=== PATIENT | female | born 1970 | race Caucasian/White ===

== ENCOUNTER 2023-03-28 10:38 | Emergency (ER) | payer SELFPAY ==
[2023-03-28 10:40] VITALS: BP 106/56; PULSE 74; RESP 18; TEMP 36.3; O2SAT 100
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
[2023-03-28 11:19] VITALS: BP 110/70; PULSE 87; RESP 18; O2SAT 99
== END 2023-03-28 11:21 | disposition home or self-care (01) ==
PROVIDERS: Emergency Provider Emergency Medicine
DX: G57.62 Lesion of plantar nerve, left lower limb (principal)
CPT/HCPCS: 99283

== ENCOUNTER 2023-06-04 00:30 | Emergency (ER) | payer BC, SELFPAY ==
[2023-06-04 00:41] VITALS: BP 128/87; PULSE 86; RESP 18; TEMP 36.4; O2SAT 100
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
[2023-06-04] MEDS: KETOROLAC (*BKC) 60 MG/2 ML VIAL IM (00:51)
[2023-06-04] MEDS: ORPHENADRINE CITRATE 30 MG/ML 2 ML VIAL 60 MG IM (00:52)
== END 2023-06-04 01:10 | disposition home or self-care (01) ==
LOC: CHSED 00:57
PROVIDERS: Emergency Provider Emergency Medicine
DX: S29.012A Strain of muscle and tendon of back wall of thorax, initial encounter (principal); X58.XXXA Exposure to other specified factors, initial encounter
CPT/HCPCS: 96372; 99284; J1885; J2360

== ENCOUNTER 2024-03-08 04:13 | Emergency (ER) | payer SELFPAY ==
[2024-03-08 04:15] VITALS: BP 113/67; PULSE 63; RESP 16; TEMP 36.3; O2SAT 99
--- NOTE | 2024-03-08 04:29 | ED.URI ---
HPI - URI/Sore Throat General Chief Complaint: Upper Respiratory Infection Stated Complaint: URI Source: patient Mode of arrival: ambulatory Limitations: no limitations History of Present Illness HPI Narrative: Patient is a 53-year-old female with a cough and not feeling well for the past week. She went to the hospital last week and was diagnosed with viral bronchitis. No medications were given. She has sick contacts in the house with her family and they are on antibiotics and steroids. She have some left-sided lower chest discomfort when she coughs only. Mild shortness of breath. No chest pain per se. MD elicited complaint: fever ( She got 102 at home today), cough and nasal congestion Pertinent past history: other ( none) Onset (ago): week(s) (1) Consistency: constant Severity: moderate Pain scale (0-10): 2 Description of mucous: clear Able to tolerate fluids by mouth: Yes Exacerbating factors: deep breaths Relieving factors: nothing Context: sick contacts Associated symptoms: fever, chills, headache, nasal congestion and cough Treatments prior to arrival: acetaminophen, ibuprofen and cold medicine Related Data Allergies Allergy/AdvReac Type Severity Reaction Status Date / Time No Known Allergies Allergy Verified 03/08/24 04:25 Review of Systems Review of Systems: All systems reviewed & are unremarkable except as noted in HPI and below Constitutional: Constitutional: Reports no additional constitutional complaints Eyes: Eyes: Reports no additional eye complaints ENT: Reports system reviewed and no additional complaints, except as documented Cardiovascular: Cardiovascular: Reports no additional cardiovascular complaints Respiratory: Respiratory: Reports no additional respiratory complaints Gastrointestinal: Gastrointestinal: Reports no additional gastrointestinal complaints Genitourinary: Genitourinary: Reports no additional female genitourinary complaints Musculoskeletal: Musculoskeletal: Reports no additional musculoskeletal complaints Integumentary/Breasts: Skin/Breast: Reports system reviewed and no additional complaints, except as docu Neurologic: Reports system reviewed and no additional complaints, except as documented Psychiatric: Psychiatric: Reports no additional psychiatric complaints Endocrine: Endocrine: Reports no additional endocrine complaints Hematologic/Lymphatic: Hematologic/Lymphatic: Reports no additional hematologic/lymphatic complaints Allergic/Immunologic: Allergic/Immunologic: Reports no additional allergic/immunologic complaints PMFSH Past Medical History Medical History No active medical problems Surgical History Surgical History History of section Exam Const: General: healthy appearing Nutritional Appearance: well nourished Orientation/consciousness: patient oriented x3 Limitations: no limitations HENMT: Head: normal to inspection Ears: external ears normal Face/Nose/Sinus: Normal external nose present Eyes: Conjunctivae: conjunctivae normal Pupils: Equal, round and reactive pupils present EOM: EOMs intact bilaterally Neck: Neck: normal visual inspection Chest: Chest palpation & inspection: normal inspection of the chest Resp: Effort & Inspection: normal respiratory effort, not labored, no retractions, not tachypneic and no use of accessory muscles Auscultation: clear to auscultation bilaterally, no crackles, no rales, no rhonchi, no wheezes, breath sounds present and lung sounds not diminished Cardio: Rate: regular rate Rhythm: regular rhythm Heart sounds: no murmurs GI: Inspection: non-distended GI Palp: Yes Soft to palpation and No Tenderness to palpation present (GI) Auscultation: normal bowel sounds : General: Yes bladder normal to palpation Back/Spine/Pelvis: Back: no CVA tenderness Skin: General skin exam: normal color Rashes: no rashes Wounds: no wounds Neuro: General: patient oriented x3 Cranial nerves: Yes Nystagmus not present Speech: normal speech Extrem: General: normal to inspection Psych: Mental Status: mental status grossly normal Affect: normal affect Attitude: cooperative MDM - URI/Sore Throat MDM Narrative Medical decision making narrative: patient is a 53-year-old female with cough and congestion for the past week. Multiple sick contacts in the house. COVID testing negative. Lab Data Attestation: I reviewed the patient's lab results. Labs: Lab Results 03/08/24 Range/Units 04:15 Influenza A (RT-PCR) Pending Influenza B (RT-PCR) Pending RSV (RT-PCR) Pending SARS-CoV-2 RNA (RT-PCR) Pending Discharge Plan Discharge Clinical Impression: Bronchitis Patient Disposition: Home, Self-Care Condition: Stable Instructions: Antibiotic Form, Acute Bronchitis (ED) Prescriptions: New azithromycin 250 mg tablet See Rx Instructions .ROUTE .COMPLEX Qty: 6 0RF Rx Instructions: For 250 mg dose pack: take 500 mg today (day 1), then 250 mg for 4 days (days 2-5) methylprednisolone [Medrol (Yoel)] 4 mg tablets,dose pack See Rx Instructions .ROUTE .COMPLEX Qty: 21 0RF Rx Instructions: orally per package directions albuterol sulfate 90 mcg/actuation HFA aerosol inhaler 1 inh inhalation QID PRN (Reason: shortness of breath or wheezing) Qty: 6.7 0RF Follow-up/Referrals: John,Mike Galarza MD [Primary Care Provider] - Stand Alone Forms: Work/School Release IP Time of Disposition: 05:01
[2024-03-08 04:56] LABS: SARS-CoV-2 RNA PCR Negative (Negative)
[2024-03-08 04:57] LABS: Influenza A QL RT-PCR Negative (Negative); Influenza B QL RT-PCR Negative (Negative); RSV RNA, RT-PCR Negative (Negative)
[2024-03-08 05:08] VITALS: BP 115/72; PULSE 68; RESP 14; TEMP 36.6; O2SAT 99
== END 2024-03-08 05:10 | disposition home or self-care (01) ==
PROVIDERS: Emergency Provider Emergency Medicine; PCP Family Medicine
DX: J40 Bronchitis, not specified as acute or chronic (principal); Z20.822 Contact with and (suspected) exposure to COVID-19
CPT/HCPCS: 87637; 99283

== ENCOUNTER 2025-01-01 16:28 | Emergency (ER) | payer SELFPAY ==
--- OUTSIDE RECORDS SUMMARY | 2024-07-20 02:15 | XMS_ITS | Continuity of Care Document ---
Author Organization [facility] Address [address] [place] [address] Phone Care Team Providers Care Pugger Helper Name Role Phone Melissa Sosa Unavailable Unavailable Procedures Procedure Date Voided Encounter Advance Directives Directive Yes / No Effective Date File Name No Information Encounters Encounter Description Practice Location Reason(s) For Visit Diagnoses Date Provider Providers Copied on Encounter Kasumi-sou [facility] , [address], [place], [place], [id number], tel:[phone] [facility] No Information Ian Torres. [address], [place], [place], [id number]. tel:[phone] Referring Provider: Jessica Harvey, [address], [place], [address]. tel:[phone] Family History Family Member Type Diagnosis Age At Onset No Information Payers Payer name Insurance type Covered libertarian ID Authoriza tion(s) No Information Social History Type Description Quantity Date Captured Comments Sex Female Smoking Status No Information Chief Complaint And Reason For Visit No Information Reason For Referral Reason For Referral No Information History Of Present Illness Encounter Date Complaint History Of Prese nt Illness No Information Functional Status Date Functional Assessmen t No Information Instructions Date Instruction Additional Infor mation No Information Assessments Type Assessment Date No Information Patient Care Teams Name Effective Dates (start - stop) Status Members No Information
[2025-01-01 16:28] VITALS: BP 116/74; PULSE 95; RESP 17; TEMP 36.6; O2SAT 99
--- OUTSIDE RECORDS SUMMARY | 2025-01-01 16:30 | XMS_ITS | Clinical Summary ---
Author Organization [facility] Address [address] [place] [address] Phone Care Team Providers Care Podiatrist Assistant Name Role Phone Mike Lopez MD Primary Care Provider Allergies Active Allergy Reactions Criticality Noted Date Comments Oxycodone-Acetaminophen Nausea 01/15/2017 Medications azithromycin (ZITHROMAX Z-CAROLE) 250 MG Tablet 2 tab(s) daily for 1 day, then 1 tab(s) daily for days 2-5. 6 Tab 7 Active predniSONE (DELTASONE) 20 MG Tablet Use as directed. 15 Tab 9 Active naproxen (NAPROSYN) 500 MG Tablet Take 1 Tablet by mouth 2 times daily (with meals). 30 Tablet 2 Active albuterol 108 (90 Base) MCG/ACT Aerosol Solution take 2 Puffs by inhalation every 6 hours as needed for Cough. 6.7 g 2 Active HYDROcodone-acet aminophen ([place]) 5-325 MG TabletIndication s:Low back pain Take 1 Tablet by mouth every 8 hours as needed for Moderate or more severe pain. 12 Tablet 3 Active ondansetron (ZOFRAN-ODT) 4 MG TABLET DISPERSIBLE Take 1 Tablet by mouth every 8 hours as needed for Nausea - 1st line. 10 Tablet 3 Active Active Problems No known active problems Social History Tobacco Use Types Packs/Day Years Used Date Smoking Tobacco: Never Smokeless Tobacco: Never Alcohol Use Standard Drinks/Week Comments No 0 (1 standard drink = 0.6 oz pur e alcohol) Comments No Sex and Gender Information Value Date Recorded Sex Assigned at Not on file Legal Sex Female 11:03 PM CDT Gender Identity Not on file Sexual Orientation Not on file Last Filed Vital Signs Vital Sign Reading Time Taken Comments Blood Pressure 95/72 07/22/2022 10:38 PM CDT Pulse 82 07/22/2022 10:38 PM CDT Temperature 37.1 C (98.7 F) 07/22/2022 10:38 PM CDT Respiratory Rate 20 07/22/2022 10:38 PM CDT Oxygen Saturation 99% 07/22/2022 10:38 PM CDT Inhaled Oxygen Concentration - - Weight 50.8 kg (112 lb) 07/22/2022 10:38 PM CDT Height 154.9 cm (5' 1) 07/22/2022 10:38 PM CDT Body Mass Index 21.16 07/22/2022 10:38 PM CDT Plan of Treatment Health Maintenance Due Date Last Done Comments Hepatitis C Virus (HCV) Screening 1972 Hepatitis B Immunization (1 of 3 - 19+ 3-dose series) 1991 Pap Smear 1993 Cervical Cancer Screening (CCS) 2002 HPV/Cotest 2002 Cologuard 2017 Colonoscopy 2017 Colorectal Cancer Screening 2017 Immunochemical Fecal Occult Blood 2017 Pneumococcal Immunization (5 0+ years) (1 of 1 - PCV) 2022 Zoster Immunization (1 of 2) 2022 Influenza Immunization (#1) 2025 10/0 05/2019, 06/14/2018 SARS-COV-2 Immunization ( - season) 2025 Respiratory Syncytial Virus (RSV) Immunization (Adult) (1 - 1-dose 75+ series) 2047 DTaP/Tdap/Td Immunization Discontinued 07/18/2016 TdaP Immunization Completed 07/18/2016 Human Papillomavirus (HPV) Immunization Aged Out No longer eligible based on patient's age to complete this topic Meningococcal Immunization (ACWY) Aged Out No longer eligible based on patient's age to complete this topic Rotavirus Immunization Aged Out No lo nger eligible based on patient's age to complete this topic Insurance MEDICARE Care Teams Podiatrist Assistant Relationship Specialty Start Date End Date Mike Lopez MD [address] [place] [address] , [address] [address] PCP - General Family Medicine 03/03/21
--- OUTSIDE RECORDS SUMMARY | 2025-01-01 16:30 | XMS_ITS | Clinical Summary ---
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 hepatitis C screening test from Last 3 Months or Most Recently Relevant to Health Maintenance Results * CT Abdomen Pelvis W Contrast (12/11/2024 11:52 PM CDT) Anatomical Region Laterality Modality Body N/A Computed Tomogra phy 12/12/2024 12:1 1 AM CDT Narrative 12/12/2024 12:20 AM CDT EXAM DESCRIPTION: CT ABDOMEN PELVIS W CONTRAST REASON FOR STUDY: Abdominal pain, acute, nonlocalized C/o abdominal burning x 1 year that recently has gotten worse. Burning sensation radiates up into the throat. Patient states this feels similar to her prior episode of H pylori. Hx of , tubal ligation TECHNIQUE: CT scan of the abdomen and pelvis performed with intravenous and without oral contrast using helical scanning technique with dynamic intravenous contrast injection. Reconstructed coronal and sagittal MPR images reviewed. All images stored on PACS. Automated exposure control was used as a dose optimization technique for this examination. CONTRAST TYPE/DOSE: 75mL of IOVERSOL 350 MG IODINE/ML INTRAVENOUS SYRINGE injected via intravenous COMPARISON: None FINDINGS: LOWER CHEST: No significant pulmonary abnormalities. No effusion. 2.6 cm possible mass in the central aspect of the left breast is partially seen on this study. Correlation with mammographic results is recommended. LIVER: Normal size. No identified cystic or solid masses. GALLBLADDER: Unremarkable BILE DUCTS: No intrahepatic or extrahepatic ductal dilatation. SPLEEN: Normal size. No focal lesions. PANCREAS: No identified cystic or solid masses. No significant calcifications. No adjacent inflammation or peripancreatic fluid collections. Pancreatic duct not dilated. ADRENALS: Normal. KIDNEYS/URINARY TRACT: No identified significant cystic or solid masses. No visualized stones. No hydronephrosis or hydroureter. Symmetric enhancement. Urinary bladder is unremarkable. GI: No dilated bowel loops. No obvious wall thickening. Normal appendix. No significant diverticular disease. PERITONEUM: No ascites or free air. RETROPERITONEUM: No mass or adenopathy. REPRODUCTIVE: No significant abnormality. VASCULATURE: No abdominal aortic aneurysm. MUSCULOSKELETAL: No significant abnormality. OTHER: No other abnormality. IMPRESSION: 1. No acute finding. 2. 2.6 cm possible mass in the central aspect of the left breast is partially seen on this study. Correlation with mammographic results is recommended. THIS IS AN ELECTRONICALLY VERIFIED FINAL REPORT 12/12/2024 12:20 AM - Electronically signed by Ilan De Souza M.D. KH: ILDA Report ID: [id number] Reading Location: [place] [address] Procedure Note Ilan De Souza MD - 12/12/2024 EXAM DESCRIPTION: CT ABDOMEN PELVIS W CONTRAST REASON FOR STUDY: Abdominal pain, acute, nonlocalized C/o abdominal burning x 1 year that recently has gotten worse. Burning sensation radiates up into the throat. Patient states this feels similarto her prior episode of H pylori. Hx of , tubal ligation TECHNIQUE: CT scan of the abdomen and pelvis performed with intravenousand without oral contrast using helical scanning technique with dynamic intravenous contrast injection. Reconstructed coronal and sagittal MPRimages reviewed. All images stored on PACS. Automated exposure control was usedas a dose optimization technique for this examination. CONTRAST TYPE/DOSE: 75mL of IOVERSOL 350 MG IODINE/ML INTRAVENOUSSYRINGE injected via intravenous COMPARISON: None FINDINGS: LOWER CHEST: No significant pulmonary abnormalities. No effusion. 2.6cm possible mass in the central aspect of the left breast is partially seenon this study. Correlation with mammographic results is recommended. LIVER: Normal size. No identified cystic or solid masses. GALLBLADDER: Unremarkable BILE DUCTS: No intrahepatic or extrahepatic ductal dilatation. SPLEEN: Normal size. No focal lesions. PANCREAS: No identified cystic or solid masses. No significant calcifications. No adjacent inflammation or peripancreatic fluidcollections. Pancreatic duct not dilated. ADRENALS: Normal. KIDNEYS/URINARY TRACT: No identified significant cystic or solid masses.No visualized stones. No hydronephrosis or hydroureter. Symmetricenhancement. Urinary bladder is unremarkable. GI: No dilated bowel loops. No obvious wall thickening. Normalappendix. No significant diverticular disease. PERITONEUM: No ascites or free air. RETROPERITONEUM: No mass or adenopathy. REPRODUCTIVE: No significant abnormality. VASCULATURE: No abdominal aortic aneurysm. MUSCULOSKELETAL: No significant abnormality. OTHER: No other abnormality. IMPRESSION: 1. No acute finding. 2. 2.6 cm possible mass in the central aspect of the left breast is partially seen on this study. Correlation with mammographic results is recommended. THIS IS AN ELECTRONICALLY VERIFIED FINAL REPORT 12/12/2024 12:20 AM - Electronically signed by Ilan De Souza M.D. KH: ILDA Report ID: [id number] Reading Location: [place] [address] PROCEDURES Final R esult * eGFR (12/11/2024 9:57 PM CDT) eGFR >90 >=60 mL/min/1. 73 m2 Comment: Interpretive Data Reference Interval Normal >/= 90 mL/min/1.73m2 Mildly decreased* 60 - 89 mL/min/1.73m2 Mildly to moderately decreased 45 - 59 mL/min/1.73m2 Moderately to severely decreased 30 - 44 mL/min/1.73m2 Severely decreased 15 - 29 mL/min/1.73m2 Kidney Failure < 15 mL/min/1.73m2 *Relative to young adult level Estimated glomerular filtration rate is determined by the 2020 CKD-EPI equation recommended by the National Kidney [employer] (A Unifying Approach to GFR Estimation: Recommendations of the NKF-ASK Task Force on Reassessing the Inclusion of Race in Diagnosing Kidney Disease, JASN 2020). The CKD-EPI equation should not be used for patients with unstable renal function and has not been validated in children and those over 70. Current interpretive data was last reviewed 2021. Blood 12/11/2024 9:57 PM CDT 12/11/2024 10:07 PM CDT Ar[facility] CHRISTOPHER LAB BLOOD ORDERABLES Beverley jennifer Result [facility] ([place]) 1 [facility] Department [place] [address] * Differential, auto (12/11/2024 9:57 PM CDT) Neutrophil abs 3.47 1.50 - 6.50 K/cumm Imm gran abs 0.03 0.00 - 0.10 K/cumm [facility] ([place]) Lymphocyte abs 2.97 0.80 - 3.30 K/cumm [facility] ([place]) Monocyte abs 0.55 0.20 - 0.80 K/cumm [facility] ([place]) Eosinophil abs 0.16 0.00 - 0.50 K/cumm [facility] ([place]) Basophil abs 0.04 0.00 - 0.10 K/cumm [facility] ([place]) Neutrophil pct 48.1 % [facility] ([place]) Comment: Interpretive Data Percent cell count reference ranges are not reported, since discordance with absolute values may lead to misinterpretation of CBC data. Current Interpretive Data was last revised on 2017. Imm gran pct 0.4 % [facility] ([place]) Comment: Interpretive Data Percent cell count reference ranges are not reported, since discordance with absolute values may lead to misinterpretation of CBC data. Current Interpretive Data was last revised on 2017. Lymphocyte pct 41.1 % [facility] ([place]) Comment: Interpretive Data Percent cell count reference ranges are not reported, since discordance with absolute values may lead to misinterpretation of CBC data. Current Interpretive Data was last revised on 2017. Monocyte pct 7.6 % [facility] ([place]) Comment: Interpretive Data Percent cell count reference ranges are not reported, since discordance with absolute values may lead to misinterpretation of CBC data. Current Interpretive Data was last revised on 2017. Eosinophil pct 2.2 % [facility] ([place] Comment: Interpretive Data Percent cell count reference ranges are not reported, since discordance with absolute values may lead to misinterpretation of CBC data. Current Interpretive Data was last revised on 2017. Basophil pct 0.6 % [facility] ([place]) Comment: Interpretive Data Percent cell count reference ranges are not reported, since discordance with absolute values may lead to misinterpretation of CBC data. Current Interpretive Data was last revised on 2017. Blood 12/11/2024 9:57 PM CDT 12/11/2024 10:07 PM CDT us Ar[facility] CHRISTOP[facility] LAB BLOOD ORDERABLES Beverley rodriguez Result [facility] ([place]) 1 [facility] Department [place] [address] * (ABNORMAL) Urinalysis reflex to microscopic and culture Urine (12/11/2024 9:57 PM CDT) Color, ur Straw Yellow Clarity, ur Clear Clear [facility] ([place]) Specific gravity, ur 1.004 1.003 - 1.030 [facility] ([place]) pH, urine 6.5 [facility] ([place]) Comment: Interpretive Data U rine pH is affected by diet, medications, systemic acid-base disturbances, and renal tubular function. pH may affect urinary stone formation. For example, urine pH below 6.0 may help reduce the tendency for calcium phosphate stones and pH greater than 6.0 may reduce the tendency for uric acid stone formation. Source: [facility] [employer] Current Interpretive Data was last revised on 2017 Protein, ur ql Negative Negative [facility]) Glucose, ur ql Negative Negative [facility] ([place]) Ketones, ur Negative Negative [facility]) Bilirubin, ur Negative Negative [facility] ([place]) Blood, ur Negative Negative [facility] ([place]) Urobilinogen, ur <2.0 <2.0 mg/dL [facility] ([place]) Nitrite, ur Negative Negative [facility]) Leukocyte esterase, ur 2+(A) Negative [facility] ([place]) UA reflex comment Reflex to microscopic UA will be performed. [facility] ([place]) Urine 12/11/2024 9:57 PM CDT 12/11/2024 10:07 PM CDT Aranza CHRISTOPHER LAB MICROBIOLOGY - GENERA L ORDERABLES Final Result Performing Organization Address City/[facility]/ZIP Co de Phone Number [facility] ([place]) 1 [facility] [email or web address] [address] * CBC with auto differential (12/11/2024 9:57 PM CDT) WBC 7.22 3.80 - 9.90 K/cumm Hgb 12.5 11.9 - 15.5 g/dL [facility]) Hct 37.7 35.6 - 45.5 % [facility] ([place]) Plt 215 150 - 400 K/cumm [facility] ([place]) MPV 11.0 9.1 - 12.3 fL [facility]) RBC 4.20 3.90 - 5.20 M/cumm [facility]) MCV 89.8 81.3 - 96.4 fL [facility] ([place]) MCH 29.8 27.1 - 33.3 pg [facility] ([place]) MCHC 33.2 32.3 - 35.7 g/dL [facility] ([place]) RDW CV 12.9 11.1 - 14.9 % [facility] ([place]) RDW SD 42.3 35.7 - 48.1 fL [facility] ([place]) NRBC abs 0.00 0.00 - 0.01 K/cumm [facility] ([place]) Blood 12/11/2024 9:57 PM CDT 12/11/2024 10:07 PM CDT Ar[facility] CHRISTOP[facility] LAB BLOOD ORDERABLES Beverley l Result Performing Organization Address City/[facility]/ZIP Co de Phone Number [facility] ([place]) 1 [facility] [place] [address] * Urinalysis, microscopic only (12/11/2024 9:57 PM CDT) Pathologist [facility] WBC, ur 0-5 0 - 5 /HPF RBC, ur 0-2 0 - 2 /HPF [facility] ([place]) Epithelial cells, squamous, ur 1-5 0 - 5 /HPF [facility] ([place]) Culture Reflex Comment Reflex conditions for urine culture (WBC >10) not met. [facility] ([place]) Urine 12/11/2024 9:57 PM CDT 12/11/2024 10:07 PM CDT [facility] CHRISTOPHER LAB URINE ORDERABLES Beverley l Result [facility] ([place]) 1 [facility] [place] [address] * Lipase (12/11/2024 9:57 PM CDT) [facility] Lipase 75 10 - 99 Units/L [facility] ([place]) Blood 12/11/2024 9:57 PM CDT 12/11/2024 10:07 PM CDT Aranza CHRISTOPHER LAB BLOOD ORDERABLES Beverley l Result [facility] ([place]) 1 [facility] [place] [address] * Comprehensive metabolic panel (12/11/2024 9:57 PM CDT) Pathologist [facility] Sodium 138 135 - 145 mmol/L [facility] ([place]) Potassium, pl 3.7 3.3 - 4.9 mmol/L [facility] ([place]) Chloride 103 97 - 110 mmol/L [facility] ([place]) CO2 24 22 - 32 mmol/L [facility] ([place]) Anion gap 11 2 - 15 mmol/L [facility] ([place]) BUN 9 6 - 25 mg/dL [facility] ([place]) Creatinine 0.67 0.60 - 1.10 mg/dL [facility] ([place]) Glucose 110 70 - 199 mg/dL [facility] ([place]) Comment: Interpretive Data Fasting glucose >/= 126 mg/dl is diagnostic for diabetes. Fasting is defined as no caloric intake for at least 8 hours. Fasting glucose between 100 mg/dl to 125 mg/dl is diagnostic of prediabetes. In a patient with classic symptoms of hyperglycemia or hyperglycemic crisis, a random glucose >/= 200 mg/dl is diagnostic for diabetes. In the absence of unequivocal hyperglycemia, results should be confirmed by repeat testing. The classification and Diagnosis of Diabetes Diabetes Care 202; 46: S19-S40. Current interpretive data was last revised 2022. Calcium 9.2 8.5 - 10.3 mg/dL [facility] ([place]) Bilirubin, total 0.4 0.1 - 1.2 mg/dL [facility] ([place]) Protein, pl 7.1 6.5 - 8.5 g/dL [facility] ([place]) Albumin 4.3 3.5 - 5.0 g/dL [facility] ([place]) Alk phos 78 40 - 130 Units/L [facility] ([place]) ALT 17 7 - 45 Units/L [facility]) AST 23 10 - 45 Units/L [facility] ([place]) Blood 12/11/2024 9:57 PM CDT 12/11/2024 10:07 PM CDT Aranza CHRISTOPHER LAB BLOOD ORDERABLES Beverley rodriguez Result [facility] ([place]) 1 [facility] Department [place] [address] * XR Chest Pa Lateral 2 Vw (12/11/2024 9:28 PM CDT) Anatomical Region Laterality Modality Body, Chest N/A Computed Radiogr aphy 12/11/2024 9:35 PM CDT Narrative 12/11/2024 9:48 PM CDT EXAM DESCRIPTION: XR CHEST PA LATERAL 2 VIEWS REASON FOR STUDY: burning pain, inhalation Burning throughout chest No other chest complaints Non smoker TECHNIQUE: 2 radiographic view(s) of the chest. COMPARISON: 08/26/2023 FINDINGS: LUNGS: Mild bibasilar atelectasis. Mild biapical pleuroparenchymal scarring. No focal pulmonary parenchymal consolidation, mary pulmonary edema, pleural effusion, or pneumothorax. HEART/MEDIASTINUM: Cardiac silhouette normal in size. Mediastinal and hilar contours appear normal. LINES/TUBES: None. BONES: No acute osseous abnormality. IMPRESSION: No acute cardiopulmonary abnormality. THIS IS AN ELECTRONICALLY VERIFIED FINAL REPORT 12/11/2024 9:48 PM - Electronically signed by Kaylee Crews M.D. AT: AT Report ID: [id number] Reading Location: [id number] Procedure Note Kaylee Crews MD - 12/11/2024 EXAM DESCRIPTION: XR CHEST PA LATERAL 2 VIEWS REASON FOR STUDY: burning pain, inhalation Burning throughout chest No other chest complaints Non smoker TECHNIQUE: 2 radiographic view(s) of the chest. COMPARISON: 08/26/2023 FINDINGS: LUNGS: Mild bibasilar atelectasis. Mild biapical pleuroparenchymalscarring. No focal pulmonary parenchymal consolidation, mary pulmonary edema,pleural effusion, or pneumothorax. HEART/MEDIASTINUM: Cardiac silhouette normal in size. Mediastinal andhilar contours appear normal. LINES/TUBES: None. BONES: No acute osseous abnormality. IMPRESSION: No acute cardiopulmonary abnormality. THIS IS AN ELECTRONICALLY VERIFIED FINAL REPORT 12/11/2024 9:48 PM - Electronically signed by Kaylee Crews M.D. AT: AT Report ID: [id number] Reading Location: [id number] [facility] CHRISTOP[facility] IMG XR PROCEDURES Final R esult * Pap and High Risk HPV, reflex to Genotyping (05/25/2022 11:48 AM RAIL TRANSPORTATION TABELER) Pap test 05/25/2022 11:4 8 AM RAIL TRANSPORTATION TABELER 05/25/2022 11:48 AM RAIL TRANSPORTATION TABELER Narrative 05/27/2022 2:52 PM RAIL TRANSPORTATION TABELER [facility] Department of Pathology [address] [place], [place] [id number] Final Report with Addendum Note to Patients: This report may contain a detailed description of human tissue sent by a health care provider to the laboratory for pathologic evaluation. The content of this report is essential for diagnosis and may provide important critical findings. This information may be unfamiliar to patients to review without a medical professional present. It is advised that the patient review this report in the presence of a health care provider who can answer questions and explain the details. Patient Name: MARTI HARTMAN Address: [address] [place] [address] Gender: F : 1970 (Age: 52) Service: Location: N : [id number] Hospital #: [id number] Patient Type: SPECIMEN Taken: 05/25/2022 Received: 05/25/2022 Accessioned:: 05/26/2022 Reported: 05/27/2022 Physician(s): Villa Blackwell M.D. Diagnosis: Source of Specimen: SCREENING THIN PREP IMAGED PAP w/ HPV Specimen Adequacy: - Satisfactory for evaluation; endocervical/transformation zone component present General Category: - Negative for intraepithelial lesion or malignancy Interpretation/Results: - Numerous inflammatory cells present STEPHANIE Connor(ASC) Report Electronically Reviewed and Signed Out By TRAY [facility]) 05/27/2022 14:52:28Addenda: HPV Test Interpretation NEGATIVE for types 16, 18, 31, 33, 35, 39, 45, 51, 52, 56, 58, 59, 66 and 68. Test performed utilizing Gen-Probe Aptima assay. STEPHANIE Enamorado(ASC)Report Electronically Reviewed and Signed Out By STEPHANIE Enamorado([facility]) 05/27/2022 09:36:04 Specimen(s) Received: A: SCREENING THIN PREP IMAGED PAP w/ HPV Clinical History: Menstrual History: Perimenopausal The Pap test is a screening test used to aid in the detection of cervical cancer and its precursors. It should not be the sole means by which malignant and premalignant lesions are diagnosed. Both false negative and false positive results may occur. It also has poor sensitivity for the detection of endometrial lesions and should not be used to evaluate suspected endometrial abnormalities. For these reasons it is most important to obtain Pap tests at regular intervals. The performance characteristics of some immunohistochemical stains, fluorescence in-situ hybridization tests and immunophenotyping by flow cytometry cited in this report (if any) were determined by the Surgical Pathology Department at [facility] as part of an ongoing quality control manager program and in compliance with federally mandated regulations drawn from the Clinical Laboratory Improvement Act of 1988 (CLIA '88). Some of these tests rely on the use of analyte specific reagents and are subject to specific labeling requirements by the US Food and Drug Administration. Such diagnostic tests may only be performed in a facility that is certified by the Department of Health and Human Services as a high complexity laboratory under CLIA '88. The FDA has determined that such clearance or approval is not necessary. This test is used for clinical purposes. It should not be regarded as investigational or for research. Nevertheless, federal rules concerning the medical use of analyte specific reagents require that the following disclaimer be attached to the report: This test was developed and its performance characteristics determined by the Surgical Pathology Department [facility]. It has not been cleared or approved by the U. S. Food and Drug Administration. Mike Lopez MD LAB CYTOLOGY ORDERABLES Final Result * Hepatitis C antibody (10/04/2020 11:35 AM CDT) Hep C Ab Nonreactive Nonreactive [facility] ([place]) Comment: Interpretive Data Nonreactive: Antibodies to HCV not detected. Does NOT exclude the possibility of recent exposure to HCV. Equivocal: Equivocal for HCV antibodies. Supplemental molecular testing will be automatically performed to determine infection status in accordance with current CDC screening recommendations. Reactive: Positive for HCV antibodies. This may represent current or past HCV infection. Supplemental molecular testing will be automatically performed to determine current infection status in accordance with current CDC screening recommendations. Interpretive data was last revised on 2019. Testing performed by: [facility], [address] [place] [address], [place] [address] Blood specimen (specimen) 10/04/2020 11:35 AM CDT 10/04/2020 6:56 PM CDT Mike Lopez MD LAB MICROBIOLOGY - GENE RAL ORDERABLES Final Result [facility] ([place]) 1 [facility] Department [place] [address] from Last 3 Months or Most Recently Relevant to Health Maintenance Care Teams Ash Collector Relationship Specialty Start Date End Date Radha Anthony, JACKSCREW MAN [address] [place] [address] [place] [address] PCP - General Family Medicine 03/23/24 Connor Freitas, EDWARDM [address] [place] [address] Consulting Physician Foot and Ankle Surg 06/01/23
--- OUTSIDE RECORDS SUMMARY | 2025-01-01 16:30 | XMS_ITS | Clinical Summary ---
Author Organization [facility] Address [address] [place] [address] Care Team Providers Care Headrig Sawyer Name Role Phone Unavailable Primary Care Provider Unavailabl e Source Comments [facility],non-owned Affiliates and Associated Physician Practices is amultiple site organization consisting of ambulatory clinics and hospital sitesin [place], [place], [place] and [place]. This disclosure is being madepursuant to the Care Everywhere program and may not contain all information available regarding this patient. Last updated 18.[facility] Allergies No known active allergies Medications * Be aware that medications may not be up to date on this document. Alwaysverify current medications with the patient. oxycodone-acetam inophen (PERCOCET) 5-325 MG tablet Take 1 Tab by mouth every 4 hours as needed for Pain. 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 Gender Identity Not on file Sexual Orientation Not on file Last Filed Vital Signs Vital Sign Reading Time Taken Comments Blood Pressure 122/70 07/18/2016 2:53 PM CDT Pulse 51 07/18/2016 2:53 PM CDT Temperature 37 C (98.6 F) 07/18/2016 1:12 PM CDT Respiratory Rate 14 07/18/2016 2:53 PM CDT Oxygen Saturation 98% 07/18/2016 2:53 PM CDT Inhaled Oxygen Concentration - - Weight 43.5 kg (96 lb) 02/09/2013 1:53 PM CDT Height 152.4 cm (5') 02/09/2013 1:53 PM CDT Body Mass Index 18.75 02/09/2013 1:53 PM CDT Plan of Treatment Health Maintenance Due Date Last Done Comments COLOGUARD (AGES 45-75) - COL ON CA SCREENING 1972 COLON MONITORING 1972 COLONOSCOPY - COLON CA SCREENING 1972 CT COLONOGRAPHY - COLON CA SCREENING 1972 Colorectal Cancer Screening 1972 FIT - COLON CA SCREENING 1972 FLEX SIG - COLON CA SCREENING 1972 LIPID TESTING 1972 MAMMOGRAM 1972 HIV SCREENING 1987 HEPATITIS C SCREENING 05/18/1990 HEPATITIS B VACCINE (1 of 3 - 19+ 3-dose series) 1991 PNEUMOCOCCAL VACCINE 50+ (1 of 1 - PCV) 2022 ZOSTER VACCINE (1 of 2) 2022 COVID-19 VACCINE (1 - 2023-2 5 season) 2024 DEPRESSION SCREENING 05/03/2024 INFLUENZA VACCINE (#1) 2025 DTAP/TDAP/TD VACCINES (2 - T d or Tdap) 07/18/2026 07/18/2016 HIB VACCINE Aged Out No longer eligi ble based on patient's age to complete this topic HPV VACCINE Aged Out No longer eligi ble based on patient's age to complete this topic MENINGOCOCCAL (Group B) VACC INE SHARED DECISION-MAKING Aged Out No longer eligibl e based on patient's age to complete this topic MENINGOCOCCAL GROUPS A/C/Y/W VACCINE Aged Out No longer eligible b ased on patient's age to complete this topic Insurance MEDICARE MEDICARE [facility]
--- NOTE | 2025-01-01 16:36 | ED_ITS ---
HPI - URI/Sore Throat General Chief Complaint: Upper Respiratory Infection Stated Complaint: viral syndrome Time Seen by Provider: 01/01/25 16:36 Source: patient Mode of arrival: ambulatory Limitations: no limitations History of Present Illness HPI Narrative: Patient is a 54-year-old female with a cough and congestion with a sore throat for the past day. Four other people in the house are feeling ill at this time. MD elicited complaint: cough, sore throat and nasal congestion Pertinent past history: other ( negative) Onset (ago): day(s) ( 1) Consistency: constant Severity: moderate Pain scale (0-10): 1 Description of mucous: clear Able to tolerate fluids by mouth: Yes Exacerbating factors: nothing Relieving factors: nothing Context: sick contacts Associated symptoms: fever, chills, headache, rhinorrhea, nasal congestion and sore throat Treatments prior to arrival: acetaminophen Related Data Allergies Allergy/AdvReac Type Severity Reaction Status Date / Time No Known Allergies Allergy Verified 01/01/25 16:36 Review of Systems Review of Systems: All systems reviewed & are unremarkable except as noted in HPI and below Constitutional: Constitutional: Reports no additional constitutional complaints Eyes: Eyes: Reports no additional eye complaints ENT: Reports system reviewed and no additional complaints, except as documented Cardiovascular: Cardiovascular: Reports no additional cardiovascular complaints Respiratory: Respiratory: Reports no additional respiratory complaints Gastrointestinal: Gastrointestinal: Reports no additional gastrointestinal complaints Genitourinary: Genitourinary: Reports no additional female genitourinary complaints Musculoskeletal: Musculoskeletal: Reports no additional musculoskeletal complaints Integumentary/Breasts: Skin/Breast: Reports system reviewed and no additional complaints, except as docu Neurologic: Reports system reviewed and no additional complaints, except as documented Psychiatric: Psychiatric: Reports no additional psychiatric complaints Endocrine: Endocrine: Reports no additional endocrine complaints Hematologic/Lymphatic: Hematologic/Lymphatic: Reports no additional hematologic/lymphatic complaints Allergic/Immunologic: Allergic/Immunologic: Reports no additional allergic/im munologic complaints PMFSH Past Medical History Medical History No active medical problems Surgical History Surgical History History of section Exam Const: General: healthy appearing Nutritional Appearance: well nourished Orientation/consciousness: patient oriented x3 HENMT: Head: normal to inspection Ears: external ears normal Face/Nose/Sinus: Normal external nose present Eyes: Conjunctivae: conjunctivae normal Pupils: Equal, round and reactive pupils present EOM: EOMs intact bilaterally Neck: Neck: normal visual inspection Chest: Chest palpation & inspection: normal inspection of the chest Resp: Effort & Inspection: normal respiratory effort and not labored Auscultation: clear to auscultation bilaterally and no crackles Cardio: Rate: regular rate Rhythm: regular rhythm Heart sounds: no murmurs GI: Inspection: non-distended GI Palp: Yes Soft to palpation and No Tenderness to palpation present (GI) Auscultation: normal bowel sounds : General: Yes bladder normal to palpation Back/Spine/Pelvis: Back: no CVA tenderness Skin: General skin exam: normal color Rashes: no rashes Wounds: no wounds Neuro: General: patient oriented x3, moves all extremities and no meningeal signs Extrem: General: normal to inspection Psych: Mental Status: mental status grossly normal Affect: normal affect Attitude: cooperative Course Vital Signs Vital signs: Vital Signs Temperature 36.6 C 01/01/25 16:28 Pulse Rate 95 01/01/25 16:28 Respiratory Rate 17 01/01/25 16:28 Blood Pressure 116/74 01/01/25 16:28 Pulse Oximetry 99 01/01/25 16:28 Oxygen Delivery Room Air 01/01/25 16:28 Temperature 36.6 C 01/01/25 18:25 Pulse Rate 95 01/01/25 18:25 Respiratory Rate 17 01/01/25 18:25 Blood Pressure 116/74 01/01/25 18:25 Pulse Oximetry 99 01/01/25 18:25 Oxygen Delivery Room Air 01/01/25 18:25 MDM - URI/Sore Throat MDM Narrative Medical decision making narrative: patient is a 54-year-old female with upper respiratory complaints at this time and sick contacts. COVID panel. Strep. Lab Data Attestation: I reviewed the patient's lab results. Labs: Lab Results 01/01/25 Range/Units 16:32 Influenza A (RT-PCR) Negative (Negative) Influenza B (RT-PCR) Negative (Negative) RSV (RT-PCR) Negative (Negative) SARS-CoV-2 RNA (RT-PCR) Positive A (Negative) Group A Strep (PCR) Not detected (Negative) Discharge Plan Discharge Clinical Impression: COVID Patient Disposition: Home Condition: Stable Instructions: COVID-19 (Coronavirus Disease 2019) (ED) Patient Language: Japanese Prescriptions: No Action azithromycin 250 mg tablet See Rx Instructions .ROUTE .COMPLEX Qty: 6 0RF Rx Instructions: For 250 mg dose pack: take 500 mg today (day 1), then 250 mg for 4 days (days 2-5) methylprednisolone [Medrol (Yoel)] 4 mg tablets,dose pack See Rx Instructions .ROUTE .COMPLEX Qty: 21 0RF Rx Instructions: orally per package directions albuterol sulfate 90 mcg/actuation HFA aerosol inhaler 1 inh inhalation QID PRN (Reason: shortness of breath or wheezing) Qty: 6.7 0RF Follow-up/Referrals: UNKNOWN,DOCTOR [Non-Staff] Stand Alone Forms: Work/School Release IP Time of Disposition: 18:24
--- OUTSIDE RECORDS SUMMARY | 2025-01-01 16:52 | XMS_ITS | Clinical Summary ---
Author Organization [facility] Address [address] [place] [address] Phone Care Team Providers Care Box Covering Machine Operator Name Role Phone Mike Lopez MD Primary [...] Cough. 6.7 g 2 Active HYDROcodone-acet aminophen (Tyro) 5-325 MG TabletIndication s:Low back pain Take [...] complete this topic Insurance MEDICARE Care Teams Box Covering Machine Operator Relationship Specialty Start Date End Date Mike Lopez MD [address] [place] [address] , [address] [address] PCP - General Family Medicine 03/03/21
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
--- OUTSIDE RECORDS SUMMARY | 2025-01-01 16:52 | XMS_ITS | Clinical Summary ---
Author Organization [facility] Address [address] [place] [address] Care Team Providers Care Hand Folder Name Role Phone Unavailable Primary Care Provider Unavailabl e Source Comments [facility],non-owned Affiliates and Associated Physician Practices is amultiple site organization consisting of ambulatory clinics and hospital sitesin [place], [place], [place] and [place]. This disclosure is being madepursuant to the Care Everywhere program and may not contain all information available regarding this patient. 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
[2025-01-01 17:37] LABS: Influenza A QL RT-PCR Negative (Negative); Influenza B QL RT-PCR Negative (Negative); RSV RNA, RT-PCR Negative (Negative); SARS-CoV-2 RNA PCR Positive (Negative)
[2025-01-01 18:15] LABS: Strep Group A RT-PCR NOT DETECTED (Negative)
[2025-01-01 18:25] VITALS: BP 116/74; PULSE 95; RESP 17; TEMP 36.6; O2SAT 99
== END 2025-01-01 18:25 | disposition home or self-care (01) ==
PROVIDERS: Emergency Provider Emergency Medicine
DX: U07.1 COVID-19 (principal)
CPT/HCPCS: 87637; 87651; 99283